=== PATIENT | female | born 1940 | race Caucasian/White ===

== ENCOUNTER 2016-07-10 06:33 | Observation (INO) | payer OTHER ==
[~2016-07-10] VITALS: Ht 185.4 cm; Wt 83.0 kg
--- NOTE | ~2016-07-10 | H ---
[facility] [address] [place] [address] HISTORY AND PHYSICAL Name: TAPIAJESSI VELASQUEZ CHAPIS Room #: 203-P [facility] Jonathan M.R.#: [id number] Admission: 07/10/16 Attend Phys: Solomon Riddle MD, Discharge: 07/11/16 Date of : 44 Report #: [id number] THIS REPORT FOR: //name// For History and Physical, please see office documentation/handwritten note in the patient's medical record. By: 1031 Solomon Riddle MD, FACC /
--- NOTE | ~2016-07-10 | CATHLAB ---
[facility] [place] [address] INVASIVE PROCEDURE REPORT Name: TAPIAJESSI CHAPIS Room #: 203-P [facility] IN M.R.#: [id number] Admission: 07/10/16 Attend Phys: Solomon Riddle, Discharge: 07/11/16 Date of : 44 Date of Service: 07/10/16 0847 Report #: [id number] THIS REPORT FOR: //name// CC: Solomon Haider PROCEDURES: Coronary angiography, PTCA to RCA. DESCRIPTION OF PROCEDURE: The patient was brought to the catheterization lab. documented cardiac catheterization performed at [facility] by Dr. Alston. There was evidence of significant area of in-stent restenosis. The right coronary had multiple areas of stenting with the mid vessel was 80-90% in-stent restenosis. I utilized an FL4 for the left coronary system, which revealed left main to be free of disease. The LAD moderately diseased and the circ OM was occluded and collaterally filled via left to left system. The JR4 guide, 0.014 Luge wire, heparin, Integrilin boluses and Integrilin drip. I utilized a 2.5 balloon initially to cross this high grade in-stent restenosis in a long area of mid vessel stent. I then exchanged this still under dilated for system, a 3.0 x 20 noncompliant balloon, which was an NC Euphora and dilated this entire midvessel up to 20 atmospheres. Final result was excellent with TITO grade 3 flow, no dissection or thrombus formation, essentially 0% residual. The patient had resolution of her EKG changes and chest pain also resolved. Vascular sheath is secured. Integrilin drip of one bottle maintained. We will remove the sheath by manual pressure. Stable upon transfer back to CV holding and then CCU for post-stent protocol. HEMODYNAMICS: 170/76, was given IV Lopressor and hydralazine for blood pressure control. IMPRESSION: 1. Successful percutaneous transluminal coronary angioplasty stent of mid vessel right coronary artery in-stent restenosis in an area of long segmented prior stent 90% to 0% with a 3.0 x 20 noncompliant balloon taken up to 3.25 mm, 0% residual and TITO grade 3 flow. There is a distal RCA lesion of 60%. The bifurcation will follow, another mild in-stent restenosis in this vessel was noted: 2. Left main, mild disease. 3. Left anterior descending stents around the apex with zupd-ys-gpaibdiu disease, no high-grade occlusion. 4. Circumflex obtuse marginal is occluded and collaterally filled via the left system. RECOMMENDATIONS: Continue aggressive risk factor modification, dual [facility] [address] [place] [address] INVASIVE PROCEDURE REPORT Name: RAMAKRISHNA TAPIARA NATION Room #: 203-P [facility] M.R.#: [id number] Admission: 07/10/16 Attend Phys: Solomon Riddle, Discharge: 07/11/16 Date of : 44 Date of Service: 07/10/16 0847 Report #: [id number] antiplatelet therapy to continue indefinitely. No lifting for 48 hours. No lying in tub, Jacuzzi or emanuel for a week. No MRI or dental work for 3 months. <ELECTRONICALLY SIGNED> By: Solomon Riddle MD, FACC 07/15/16 0903 0847 0941 Solomon Riddle MD, FACC /nt
--- NOTE | ~2016-07-10 | EKG ---
[address] [address] ELECTROCARDIOGRAM REPORT Name: JESSI TAPIA Room #: 203-P [facility] M.R.#: [id number] Admission: 07/10/16 Attend Phys: Solomon Riddle MD, Discharge: Date of : 44 Report #: [id number] THIS REPORT FOR: //name// [facility] Test Date: 2016-07-10 Test Time: 12:11:17 Pat Name: JESSI TAPIA Department: Room: [facility] Gender: F Farmworkers: Nakita WOLF : 1940 Requested By: Solomon Riddle Order Number: [id number] MD: Xu Alston Measurements Intervals [place] Rate: 90 P: 64 GA: 175 QRS: 23 QRSD: 106 T: 90 QT: 377 QTc: 462 Interpretive Statements Sinus rhythm Abnormal R-wave progression, early transition No previous ECG available for comparison Electronically Signed On 07-10-2016 19:08:12 CDT by Xu Alston [email or web address] <ELECTRONICALLY SIGNED> By: Xu Alston MD, [facility] 07/10/16 1908 1211 121 Xu Alston MD, FAC /EPI
[~2016-07-10 06:33] MED LIST: CLOPIDOGREL; COMBIVENT INH; CRESTOR5 MG PO; FISHOIL; IBUPROFEN 800800 MG PO; NORCO 5-325 TA1 EACH PO; PREDNISONE 20 M20 M1 PO; PRILOSEC40 MG; STOOL SOFTENER50 MG; ZPAK PO; [UNRECOGNIZED DRUG - OTHER]
[2016-07-10] MEDS ORDERED: PLAVIX 75 MG TA75 M1 PO (06:47)
[2016-07-10] MEDS ORDERED: STOOL SOFTENER100 MG PO (06:48)
[2016-07-10] MEDS ORDERED: AMITRIPTYLINE H25 M2 PO (06:49)
[2016-07-10] MEDS ORDERED: VITAMIN B-12500 MCG PO (06:49)
[2016-07-10] MEDS ORDERED: ASPIR 8181 MG PO (06:50)
[2016-07-10] MEDS ORDERED: TOPROL XL25 MG PO (06:50)
[2016-07-10] MEDS ORDERED: PREVACID30 MG PO (06:50)
[2016-07-10] MEDS ORDERED: COZAAR 25 MG TA25 MG PO (06:50)
[2016-07-10] MEDS ORDERED: LEVOTHYROXIN0.137 M1 PO (06:51)
[2016-07-10 09:38] LABS: HEMATOCRIT 36.7 % (37.0-47.0); HEMOGLOBIN 12.4 gm/dL (12.0-15.0); MCH 30.8 pg (26.0-34.0); MCHC 33.8 g/dL (28.0-37.0); MCV 91.2 fL (80.0-100.0); RBC 4.02 mil/uL (4.20-5.00); WBC 8.4 thou/uL (4.0-11.0)
[2016-07-10 09:43] LABS: ANION GAP 9 mmol/L (7-16); BUN 15 mg/dL (7-18); CALCIUM 8.7 mg/dL (8.5-10.1); CHLORIDE 105 mmol/L (98-107); CO2 24 mmol/L (21-32); GLUCOSE 95 mg/dL (70-99); POTASSIUM 4.1 mmol/L (3.5-5.1); SODIUM 138 mmol/L (136-145)
[2016-07-10 09:48] LABS: CHOLESTEROL 115 mg/dL (<200); HDL CHOLESTEROL 39 mg/dL (>40); LDL CHOLESTEROL 57 mg/dL (<100); TC:HDL 2.9 Ratio (Not establshd); TRIGLYCERIDE 96 mg/dL (<150); VLDL 19 mg/dL (<40)
[2016-07-11 03:52] LABS: HEMATOCRIT 37.7 % (37.0-47.0); HEMOGLOBIN 12.4 gm/dL (12.0-15.0); MCH 30.3 pg (26.0-34.0); MCHC 32.9 g/dL (28.0-37.0); MCV 91.9 fL (80.0-100.0); RBC 4.1 mil/uL (4.20-5.00); RDW 14.1 % (10.5-14.5); WBC 11.5 thou/uL (4.0-11.0)
[2016-07-11 04:07] LABS: CALCIUM 8.6 mg/dL (8.5-10.1); POTASSIUM 4.2 mmol/L (3.5-5.1)
== END 2016-07-11 10:32 | disposition home or self-care (01) ==
LOC: CATH 06:33 → 2N 11:50
PROVIDERS: Internal Medicine Cardiovascular Disease
DX: I25.10 Atherosclerotic heart disease of native coronary artery without angina pectoris (principal); E78.00 Pure hypercholesterolemia, unspecified; I10 Essential (primary) hypertension; F17.200 Nicotine dependence, unspecified, uncomplicated

== ENCOUNTER 2018-09-23 09:22 | Observation (INO) | payer OTHER ==
[~2018-09-23] VITALS: Ht 185.4 cm; Wt 83.9 kg
[2018-09-23] VITALS (10 sets, daily range): BP systolic 133–191; BP diastolic 61–78
[~2018-09-23 09:22] MED LIST changes: +AMITRIPTYLINE H25 M2 PO; +ASPIR 8181 MG PO; +COZAAR 25 MG TA25 MG PO; +LEVOTHYROXIN0.137 M1 PO; +PLAVIX 75 MG TA75 M1 PO; +PREVACID30 MG PO; +PROTONIX40 M1 PO; +STOOL SOFTENER100 MG PO; +SYNTHROID125 MC1 PO; +TOPROL XL25 MG PO; +VITAMIN B-1250 MC2 PO; +VITAMIN B-12500 MCG PO
--- NOTE | 2018-09-23 15:23 | NUR ---
1525---DEBBY IN PROGRESS. PT COOPERATIVE
--- NOTE | 2018-09-23 16:15 | EKG ---
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: NESTOR : 1940 Requested By: Solomon Riddle Order Number: [id number] MD: Giovani Correa Measurements Intervals [place] Rate: 84 P: 55 MA: 162 QRS: 9 QRSD: 127 T: 129 QT: 386 QTc: 457 Interpretive Statements Sinus rhythm Probable left atrial enlargement LVH with secondary repolarization abnormality Compared to ECG 07/10/2016 12:11:17 Left ventricular hypertrophy now present Early repolarization now present Electronically Signed On 09-23-2018 16:15:30 CDT by Giovani Correa [email or web address] ��������������������������������������������� <ELECTRONICALLY SIGNED> ���������������������������������������� By: Giovani Correa MD ��������������������������������������������� 09/23/18 1615 0949 0949 Giovani Correa MD /EPI
--- NOTE | 2018-09-23 16:25 | EKG ---
[place] [address] [place] [address] ELECTROCARDIOGRAM REPORT Name: JESSI TAPIA [facility] [id number] ������������������ Admission: 09/23/18 ������������������ Attend Phys: Solomon Riddle MD, Discharge: ������������������ Date of : 44 Report #: [id number] ����������������������������������������������������������������� [id number] THIS REPORT FOR: //name// [facility] Test Date: 2018-09-23 Test Time: 14:50:16 Pat Name: JESSI TAPIA Department: Room: Gender: F Director Of Volunteer Services: : 1940 Requested By: Xu Alston Order Number: [id number] MD: Giovani Correa Measurements Intervals [place] Rate: 94 P: 66 HI: 189 QRS: 15 QRSD: 121 T: 140 QT: 348 QTc: 436 Interpretive Statements Sinus rhythm Probable left atrial enlargement LVH with secondary repolarization abnormality Compared to ECG 07/10/2016 12:11:17 Left ventricular hypertrophy now present Early repolarization now present Electronically Signed On 09-23-2018 16:25:35 CDT by Giovani Correa [email or web address] ��������������������������������������������� <ELECTRONICALLY SIGNED> ���������������������������������������� By: Giovani Correa MD ��������������������������������������������� 09/23/18 1625 1450 1450 Giovani Correa MD /EPI
--- NOTE | 2018-09-23 18:20 | CATHLAB ---
[facility] [address] [place] [address] INVASIVE PROCEDURE REPORT Name: JESSI TAPIA Room #: 205-P [facility] IN .R.#: [id number] ������������� Admission: 09/23/18 ������������� Attend Phys: Solomon Riddle, Discharge: ��� ������������� ��� Date of : 44 Date of Service: 09/23/18 1820 �� Report #: [id number] �������� ��������������������������������������������[id number] THIS REPORT FOR: //name// APPROVED REPORT Study performed: 09/23/2018 12:12:19 Patient Details Patient Status: Out-Patient Room #: The patient is a 78 year-old female Event Personnel Xu Alston Fuel Efficient Aircraft Designer, Freddy Salcedo RN, Melisa Stevens RN RN, Dora Rucker SOLE LEVELER Scrub, Gabi Nicholas RTR, SOLE LEVELER Monitor Procedures Performed Left Heart Cath w/or w/o Coronaries 5001833 [facility] [address] Initial Mod Sed Same Phys/QHP Gr 251226 42600 Mod Sed Same Phys/QHP Ea 516665 SADI Place w/wo Plasty Single PDA 490614 Indication Positive stress test Procedure Narrative The right coronary system was accessed and visualized with a JR4 catheter. The left coronary system was accessed and visualized with a JL4 catheter. The left ventricle was accessed and visualized with a angled pigtail catheter. Left ventricular/Aortic Valve gradient assessed via catheter pullback. Left ventriculogram was performed in 30 degree projection. The patient tolerated the procedure well and there were no complications associated with the procedure. Intraoperative Conscious Sedation Sedation start time: 12:29 Case end Time: 14:07 Fentanyl 100 mcg Versed 2 mg Fluoro Time: 21.08 minutes Dose: DAP 38924.40 cGycm2 3811 mGy Contrast Type and Amount: Visipaque 310 ml Coronary Angiography The patient's coronary anatomy is right dominant. [facility] [address] [place] [address] INVASIVE PROCEDURE REPORT Name: JESSI TAPIA Room #: 205-P [facility] IN M.R.#: [id number] ������������� Admission: 09/23/18 ������������� Attend Phys: Solomon Riddle, Discharge: ��� ������������� ��� Date of : 44 Date of Service: 09/23/18 1820 �� Report #: [id number] �������� ��������������������������������������������[id number] Diagnostic Cath Left Main Normal left main LAD Proximal and mid LAD stents widely patent with minimal plaquing Diagonal 1 Moderate size first diagonal branch, angiographically normal Diagonal 2 Second diagonal branch, angiographically normal Circumflex Moderate 40-50% proximal circumflex stenosis OM1 Occluded mid first marginal branch with left to left collateralization OM2 Small distally arising second marginal branch, angiographically normal Right Coronary Dominant right coronary stented throughout its course, proximal to distally 95% mid intrastent stenosis. The distalSubtotalled distal RCA intrastent stenosis R PDA Severe ostial posterior descending branch stenosis RPLV Severe posterior lateral branch stenosis Left Ventriculography The left ventricle is normal in size with normal contractility. The left ventricular ejection fraction is estimated to be 60-65%. Left ventricular wall motion abnormalities are not present. There is 1+ mitral insufficiency. Hemodynamics The aortic pressure is 163/63 mmHg with a mean of 105 mmHg. The left ventricular pressure is 154/7 mmHg with a mean of mmHg. The left ventricular end diastolic pressure is 24 mmHg. PCI Technique Lesion Anticoagulation was achieved with Heparin, Integrilin. Patient was preloaded with Plavix. Percutaneous coronary intervention was performed on the mid and distal right coronary artery. The lesion stenosis prior to intervention was 99% with TITO 3 flow. A LAUNCHER 6FR JR 4 #[id number] Guide Catheter was used to engage the ostium. A Luge Wire .014 x 182CM #[id number] Interventional Guidewire was used to cross the lesion. BALLOON DILATION The mid and distal RCA severe intrastent stenoses were dilated with a high pressure non-compliant balloon. POST STENT DEPLOYMENT BALLOON DILATION [facility] [address] [place] [address] INVASIVE PROCEDURE REPORT Name: JESSI TAPIA Room #: 205-P [facility] IN M.R.#: [id number] ������������� Admission: 09/23/18 ������������� Attend Phys: Solomon Riddle, Discharge: ��� ������������� ��� Date of : 44 Date of Service: 09/23/18 1820 �� Report #: [id number] �������� ��������������������������������������������[id number] A Balloon catheter TREK NC RX 3.0 X 15 #[id number] was inserted and inflated up to 14.00atm for 30seconds. PCI Technique Lesion 2 Percutaneous Coronary Intervention was performed on the mid right coronary artery. The lesion stenosis prior to intervention was 99% with TITO 3 flow. A LAUNCHER 6FR JR 4 #356635 Guide Catheter was used to engage the right ostium. A Luge Wire .014 x 182CM #781008 Interventional Guidewire was used to cross the lesion. Stent Deployment A drug-eluting stent RESOLUTE DAMIR RX 3.5 X 30 #[id number] was inserted and inflated up to 16.00atm for 31seconds. 3.5mm x 15mm NC Trek was used to post dilate the 3.5mm x 30mm Resolute [place] RX SADI. Three inflations were performed: 1.)22 zoë for 31 seconds. 2.)22 zoë for 44 seconds. 3.)22 zoë for 27 seconds. Post Stent Deployment Balloon Dilation A Balloon catheter TREK NC RX 3.0 X 15 #[id number] was inserted and inflated up to 22.00atm for 30seconds. Additional Inflation: 18.00atm for 28seconds. Additional Inflation: 22.00atm for 37seconds. 0% residual stenosis remained following repeat stenting and post-dilatation with a non-compliant balloon. Final angiography reveals 0 % stenosis with TITO 3 flow. PCI Technique Lesion 3 Percutaneous Coronary Intervention was performed on the first right posterior lateral segment. A LAUNCHER 6FR JR 4 #442540 Guide Catheter was used to engage the ostium. A Luge Wire .014 x 182CM #[id number] Interventional Guidewire was used to cross the lesion. Balloon Dilation A Balloon catheter Euphora RX 2.5 x 12 #[id number] was inserted and inflated up to 8.00atm for 10seconds. Additional Inflation: 16.00atm for 30seconds. Post Stent Deployment Balloon Dilation A Balloon catheter TREK NC RX 2.5 X 12 #[id number] was inserted and inflated up to 16.00atm for 13seconds. Additional Inflation: 12.00atm for 13seconds. Additional Inflation: 14.00atm for 64seconds. Final angiography reveals 0 % stenosis with TITO [address] [place] [address] INVASIVE PROCEDURE REPORT Name: JESSI TAPIA Room #: 205-P [facility] IN M.R.#: [id number] ������������� Admission: 09/23/18 ������������� Attend Phys: Solomon Riddle, Discharge: ��� ������������� ��� Date of : 44 Date of Service: 09/23/18 1820 �� Report #: [id number] �������� ��������������������������������������������[id number] Initially the PL branch stenosis was pre-dilated with a 2.5mm balloon. Following this the PDA stenosis was stented and post-dilated with a non-compliant balloon. The PL branch was re-wired and the ostial stenosis/intermediate balloon with the 2.5mm balloon. Overall excellent angiographic result TITO III flow at PDA stent and PL branch origin. PCI Technique Lesion 4 Percutaneous Coronary Intervention was performed on the right posterior descending artery. The lesion stenosis prior to intervention was 99% with TITO 3 flow. A LAUNCHER 6FR JR 4 #943218 Guide Catheter was used to engage the right ostium. A Luge Wire .014 x 182CM #[id number] Interventional Guidewire was used to cross the lesion. Balloon Dilation A Balloon catheter Euphora RX 2.5 x 12 #[id number] was inserted and inflated up to 12.00atm for 27seconds. Stent Deployment A drug-eluting stent RESOLUTE DAMIR RX 2.5 X 12 #[id number] was inserted and inflated up to 14.00atm for 27seconds. Post Stent Deployment Balloon Dilation A Balloon catheter Wavebreak Mediaphora NC RX 2.5 x 12 #[id number] was inserted and inflated up to 14.00atm for 19seconds. Additional Inflation: 22.00atm for 22seconds. Final angiography reveals 0 % stenosis with TITO 3 flow. Conclusion 1. Normal global and regional systolic function. EF 65% 2. Mild intrastent LAD plaquing 3. Non-dominant circumflex. Occlueded OM1 with left to left collateralization 4. Severe mid intrastent RCA disease re-stented with a 3.5 x 30mm Resolute stent 5. Complex distal RCA intrastent stenosis, extending to origins of PDA and PL branches, neither of which had been previously stented (PDA now stented with 2.5 x 12mm Resolute; PL branch ballooned with non-compliant balloon) Recommendations Smoking Cessation [place] [address] [place] [address] INVASIVE PROCEDURE REPORT Name: JESSI TAPIA CHAPIS Room #: 205-P [facility] IN ..#: [id number] ������������� Admission: 09/23/18 ������������� Attend Phys: Solomon Riddle, Discharge: ��� ������������� ��� Date of : 44 Date of Service: 09/23/181819 �� Report #: [id number] �������� ��������������������������������������������[id number] Cardiac Rehabilitation Referral Aggressive Medical Therapy ��������������������������������������������� <ELECTRONICALLY SIGNED> ���������������������������������������� By: Xu Alston MD, [facility] ��������������������������������������������� 09/23/181819 19 19 Xu Alston MD, FACC /INF
--- NOTE | 2018-09-23 18:23 | NUR ---
PATIENT ARRIVED FROM CV HOLDING VIA STRECHER, ALERT AND ORIENTED X4. LT GRION SITE SOFT AND INTACT, DRESSING D/C/I. ADMISION COMPLETED AND POC INTIATED. AND WILL CONTINUE TO MONITOR.
[2018-09-24] VITALS: BP 153/69
--- NOTE | 2018-09-24 04:13 | NUR ---
PT POST CARDIAC CATH AND STENT TO THE RIGHT LEG. AO X 4. REPORTS SORENESS IN THE CHEST POST CATH. NO NAUSEA, VOMITING.OR DIZZINESS. PAIN DOES NOT RADIATE AND IS ALLEVIATED BY PAIN MEDICATION.PAIN IS INTENSE WHEN DEEP BREATHING. PT WAS OFF BEDREST AND ABLE TO VOID WITHOUT ANY PROBLE. STAND BY ASSIST WITH AMBULATION. NO OTHER C/O NOTED AT THIS TIME. WILL CONTINUE WITH PLAN OF CARE
[2018-09-24 04:44] LABS: HEMATOCRIT 37.6 % (37.0-47.0); HEMOGLOBIN 12.7 gm/dL (12.0-15.0); MCH 30.5 pg (26.0-34.0); MCHC 33.8 g/dL (28.0-37.0); MCV 90.3 fL (80.0-100.0); RBC 4.16 mil/uL (4.20-5.00); RDW 15.2 % (10.5-14.5); WBC 7.7 thou/uL (4.0-11.0)
[2018-09-24 04:45] VITALS: BP 149/59
[2018-09-24 04:53] LABS: ALBUMIN 3.1 g/dL (3.4-5.0); ANION GAP 10 mmol/L (7-16); BUN 14 mg/dL (7-18); CALCIUM 8.4 mg/dL (8.5-10.1); CHLORIDE 107 mmol/L (98-107); CHOLESTEROL 110 mg/dL (<200); CO2 23 mmol/L (21-32); GLUCOSE 103 mg/dL (74-106); HDL CHOLESTEROL 31 mg/dL (>40); LDL CHOLESTEROL 59 mg/dL (<100); POTASSIUM 3.7 mmol/L (3.5-5.1); SGOT 17 U/L (15-37); SGPT 13 U/L (30-65); SODIUM 140 mmol/L (136-145); TC:HDL 3.5 Ratio (Not establshd); TOTAL BILIRUBIN 0.4 mg/dL (<0.1-1.0); TRIGLYCERIDE 103 mg/dL (<150); VLDL 21 mg/dL (<40)
[2018-09-24 04:56] LABS: SERUM ASSESSMENT Clear
[2018-09-24 04:57] LABS: TROPONIN-I 2.14 ng/mL (<0.06)
[2018-09-24] MEDS ORDERED: ASPIR 8181 MG PO (07:51)
--- NOTE | 2018-09-24 07:56 | EKG ---
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 : 1940 Requested By: Xu Alston Order Number: [id number] MD: Xu Alston Measurements Intervals [place] Rate: 89 P: 35 [place]: 165 QRS: 5 QRSD: 122 T: 139 QT: 383 QTc: 467 Interpretive Statements Sinus rhythm Nonspecific ST and T wave abnormality Compared to ECG 09/23/2018 14:50:16 No significant change was found Electronically Signed On 09-24-2018 7:55:59 CDT by Xu Alston [email or web address] ��������������������������������������������� <ELECTRONICALLY SIGNED> ���������������������������������������� By: Xu Alston MD, [facility] ��������������������������������������������� 09/24/18 0755 0750 0750 Xu Alston MD, [facility] /EPI
[2018-09-24 08:07] VITALS: BP 155/58
[2018-09-24 08:50] VITALS: BP 155/58
[2018-09-24 09:04] VITALS: BP 155/58
--- NOTE | 2018-09-24 10:31 | NUR ---
PATIENT CARE ASSUMED, ASSESSMENT CHARTED, VSS, LEFT GROIN DRESSING, CDI, NO COMPLAINTS OF PAIN, DISCHARGE INSTRUCTIONS GIVEN, PATIENT STATED UNDERSTANDING.
== END 2018-09-24 09:45 | disposition home or self-care (01) ==
LOC: CATH 09:22 → 2N 16:57 → ENTRNSPT 09-24 09:39 → EDTRNSPTSTS 09-24 09:41 → 2N 09-24 09:45
PROVIDERS: ADMIT Internal Medicine
DX: I25.10 Atherosclerotic heart disease of native coronary artery without angina pectoris (principal); I73.9 Peripheral vascular disease, unspecified; I10 Essential (primary) hypertension; E78.5 Hyperlipidemia, unspecified; F17.200 Nicotine dependence, unspecified, uncomplicated; Z88.8 Allergy status to other drugs, medicaments and biological substances

== ENCOUNTER → 2020-08-17 | Outpatient (CLI) | payer OTHER | LOC: SJCVC 13:12 | PROVIDERS: ATTEND Internal Medicine Cardiovascular Disease | DX: R94.31 Abnormal electrocardiogram [ECG] [EKG] (principal); I25.10 Atherosclerotic heart disease of native coronary artery without angina pectoris; I10 Essential (primary) hypertension; E78.00 Pure hypercholesterolemia, unspecified; I65.23 Occlusion and stenosis of bilateral carotid arteries; I73.9 Peripheral vascular disease, unspecified; R07.89 Other chest pain; R06.02 Shortness of breath; F17.200 Nicotine dependence, unspecified, uncomplicated; Z79.82 Long term (current) use of aspirin; Z79.899 Other long term (current) drug therapy; Z82.49 Family history of ischemic heart disease and other diseases of the circulatory system ==

== ENCOUNTER → 2020-09-08 | Outpatient (CLI) | payer OTHER ==
[~2020-09-08] MED LIST changes: +ASA81BEC PO; +CALCIUM CITRAT1 EA18 PO; +FAMOTIDINE 40 M40 M1 PO
== END ==
LOC: SJCVCIMAG 07:37
PROVIDERS: ATTEND Internal Medicine Cardiovascular Disease
DX: I70.203 Unspecified atherosclerosis of native arteries of extremities, bilateral legs (principal); R00.0 Tachycardia, unspecified; I49.3 Ventricular premature depolarization; R06.00 Dyspnea, unspecified; R94.31 Abnormal electrocardiogram [ECG] [EKG]; I10 Essential (primary) hypertension; I25.10 Atherosclerotic heart disease of native coronary artery without angina pectoris; E78.00 Pure hypercholesterolemia, unspecified; I65.23 Occlusion and stenosis of bilateral carotid arteries; J44.9 Chronic obstructive pulmonary disease, unspecified; F17.200 Nicotine dependence, unspecified, uncomplicated; Z95.820 Peripheral vascular angioplasty status with implants and grafts; Z95.5 Presence of coronary angioplasty implant and graft; Z79.82 Long term (current) use of aspirin; Z79.899 Other long term (current) drug therapy; Z82.49 Family history of ischemic heart disease and other diseases of the circulatory system

== ENCOUNTER 2020-09-13 09:48 | Observation (INO) | payer OTHER ==
[~2020-09-13] VITALS: Ht 185.4 cm; Wt 80.3 kg
[~2020-09-13 09:48] MED LIST changes: -ASA81BEC PO; -CALCIUM CITRAT1 EA18 PO; -FAMOTIDINE 40 M40 M1 PO
[2020-09-13 10:38] VITALS: BP 166/70
[2020-09-13 10:40] LABS: HEMATOCRIT 42.6 % (37.0-47.0); HEMOGLOBIN 14.3 gm/dL (12.0-15.0); MCH 30.9 pg (26.0-34.0); MCHC 33.6 g/dL (28.0-37.0); MCV 92.1 fL (80.0-100.0); RBC 4.62 mil/uL (4.20-5.00); RDW 14.9 % (10.5-14.5); WBC 7.7 thou/uL (4.0-11.0)
[2020-09-13] MEDS ORDERED: CALCIUM CITRAT1 EA18 PO (10:48)
[2020-09-13] MEDS ORDERED: FAMOTIDINE 40 M40 M1 PO (10:48)
[2020-09-13] MEDS ORDERED: ASA81BEC PO (10:49)
[2020-09-13 10:55] LABS: CALCIUM 9.3 mg/dL (8.5-10.1); CREATININE 1.2 mg/dL (0.6-1.0)
[2020-09-13 21:40] VITALS: BP 148/66
[2020-09-13 21:45] VITALS: BP 151/70
[2020-09-13 22:00] VITALS: BP 147/72
[2020-09-13 22:15] VITALS: BP 126/88
[2020-09-13 22:30] VITALS: BP 145/70
[2020-09-14] VITALS: BP 160/72
[2020-09-14 01:00] VITALS: BP 125/50
[2020-09-14 02:00] VITALS: BP 136/60
[2020-09-14 03:37] VITALS: BP 152/68
[2020-09-14 05:07] LABS: HEMATOCRIT 37.7 % (37.0-47.0); HEMOGLOBIN 12.7 gm/dL (12.0-15.0); MCH 31.3 pg (26.0-34.0); MCHC 33.5 g/dL (28.0-37.0); MCV 93.3 fL (80.0-100.0); RBC 4.05 mil/uL (4.20-5.00); RDW 14.9 % (10.5-14.5); WBC 7.6 thou/uL (4.0-11.0)
[2020-09-14 05:36] LABS: CALCIUM 8.4 mg/dL (8.5-10.1); CREATININE 1.1 mg/dL (0.6-1.0); POTASSIUM 4.1 mmol/L (3.5-5.1); TROPONIN-I 0.42 ng/mL (<0.06)
--- NOTE | 2020-09-14 05:48 | NUR ---
ASSUME CARE 1900. PT/VITASL STABLE. INDICATES CHEST SORENESS NUT DENIES ANY CHEST PRESSURE OR PAIN. R/L GROIN SITE CDI. GOOD ENDURANCE TO ACTIVITY. SCANT DRAINAGE NOTED ON RIGHT GROIN DRESSING AFTER WALKING. NO FURTHER DAINAGE NOTED WITH SUBSEQUENT CHECKS. 2+ PEDAL PULSES NOTED. BLE PINK AND WARM TO TOUCH. 2 STENTS PLACED IN RIGHT LEG AND BALOON PLACED OVER LESION IN RCA WITH CARIAC CATHERIZATION. PLAN IS FOR POSSIBLE DISCHARGE TODAY WITH PLANS OF RETURNING NEXT WEEK FOR LEFT LEG STENT PLACEMENT. WILL CONTINUE TO MONITOR AND FOLLOW WITH POC
--- NOTE | 2020-09-14 08:12 | EKG ---
[address] [address] ELECTROCARDIOGRAM REPORT Name: JESSI TAPIA Room #: 206-[facility]..#: [id number] Admission: 09/13/20 Attend Phys: Edgar Cobb MD Discharge: Date of : 44 Report #: [id number] [facility] Test Date: 2020-09-13 Test Time: 18:42:54 Pat Name: JESSI TAPIA Department: Room: 206 P Gender: F Supervisory Civil Engineer: FSCHWALDINAH : 1940 Requested By: Edgar Cobb Order Number: [id number] MD: Giovani Correa Measurements Intervals [place] Rate: 99 P: 69 ND: 150 QRS: 49 QRSD: 113 T: 234 QT: 371 QTc: 477 Interpretive Statements Sinus rhythm Borderline intraventricular conduction delay Baseline wander in lead(s) V6 Compared to ECG 09/24/2018 07:50:05 Electronically Signed On 09-14-2020 8:12:24 CDT by Giovani Correa [email or web address] <ELECTRONICALLY SIGNED> By: Giovani Correa MD 09/14/2012 41 41 Giovani Correa MD /LORENZO
--- NOTE | 2020-09-14 08:13 | EKG ---
[address] [address] ELECTROCARDIOGRAM REPORT Name: JESSI TAPIA Room #: 206-[facility] M.R.#: [id number] Admission: 09/13/20 Attend Phys: Edgar Cobb MD Discharge: Date of : 44 Report #: [id number] [facility] Test Date: 2020-09-13 Test Time: 22:53:53 Pat Name: JESSI TAPIA Department: Room: 206 P Gender: F Chick Room Supervisor: KENDRICK : 1940 Requested By: Solomon Riddle Order Number: [id number] MD: Giovani Correa Measurements Intervals [place] Rate: 95 P: 58 MO: 157 QRS: 24 QRSD: 119 T: 73 QT: 387 QTc: 487 Interpretive Statements Sinus rhythm Nonspecific intraventricular conduction delay Borderline ST depression, anterolateral leads Compared to ECG 09/13/2020 18:42:54 Electronically Signed On 09-14-2020 8:13:43 CDT by Giovani Correa [email or web address] <ELECTRONICALLY SIGNED> By: Giovani Correa MD 09/14/20 0813 52 52 Giovani Correa MD /LOR[facility]
[2020-09-14 08:18] VITALS: BP 148/69
[2020-09-14 10:34] VITALS: BP 148/69
--- NOTE | 2020-09-15 18:10 | CATHLAB ---
[facility] [place] [address] INVASIVE PROCEDURE REPORT Name: JESSI TAPIA Room #: 206-P [facility] Jonathan M.RMatilde#: [id number] Admission: 09/13/20 Attend Phys: Edgar Cobb MD Discharge: 09/14/20 Date of : 44 Report #: [id number] THIS REPORT FOR: cc: Laya Haider MD, Kelly A. MD Mancuso, Gerald M. MD [facility] ~ APPROVED REPORT Study performed: 09/13/2020 19:07:10 Patient Details The patient is a 80 year-old female Event Personnel Solomon Riddle Insurance Claims Processor, Eugenia Cr, Raz Santo RT.RMatilde Procedures Performed Art Access - R femoral artery* Left Heart Cath w/or w/o Coronaries 7875207 [facility] PTCA Single Vessel RCA 6029075 PCISINGLE 43973 Initial Mod Sed Same Phys/QHP Gr5y 252459 96874 Mod Sed Same Phys/QHP Ea 303225 Hemostasis w/ Mynx Indication Chest pain Procedure Narrative The Right Groin^ was infiltrated with 2% Lidocaine subcutaneous anesthesia. A PINNACLE 6FR Sheath #[id number] sheath was inserted into the . Coronary angiography was performed using coronary diagnostic catheters. The right coronary system was accessed and visualized with a JR4 catheter. The left coronary system was accessed and visualized with a JL4 catheter. The left ventricle was accessed and visualized with a STR PIG catheter. Left ventriculogram was performed in 30 degree projection. There was no hematoma. Intraoperative Conscious Sedation Sedation start time: 1949 Case end Time: 2104 Fentanyl 100 mcg Versed 2 mg Fluoro Time: 11.00 minutes Dose: DAP 8544.20 cGycm2 1000 mGy Contrast Type and Amount: Visipaque 165 ml [facility] [place] [address] INVASIVE PROCEDURE REPORT Name: TAPIAJESSIRA NATION Room #: 206-P [facility] IN M.R.#: [id number] Admission: 09/13/20 Attend Phys: Edgar Cobb, Discharge: 09/14/20 Date of : 42 Report #: [id number] Hemodynamics The aortic pressure is 152/62 mmHg with a mean of 93 mmHg. The left ventricular pressure is 142/3 mmHg with a mean of mmHg. The left ventricular end diastolic pressure is 8 mmHg. PCI Technique Lesion Percutaneous coronary intervention was performed on the Superficial Femoral. A LAUNCHER 6FR JR 4 #[id number] Guide Catheter was used to engage the RCA ostium. A Luge Wire .014 x 182CM #[id number] Interventional Guidewire was used to cross the lesion. BALLOON DILATION A Balloon catheter Sprinter OTW 2.5 x 15 #[id number] was inserted and inflated up to 18atm for 27seconds. Additional Inflation: 20atm for 21seconds. STENT DEPLOYMENT NO STENT PLACED PCI ONLY. POST STENT DEPLOYMENT BALLOON DILATION A Balloon catheter TREK NC OTW 4.0 X 15 #[id number] was inserted and inflated up to 8atm for 9seconds. Additional Inflation: 4atm for 13seconds. Additional Inflation: 4atm for 17seconds. ADDITIONAL INFLATIONS: 12 SHERRI FOR 33 SEC., 10 SHERRI FOR 28 SECS. 3RD BALLOON USED NC EUPHORA 4.0X20MM 22 SHERRI FOR 48 SEC, 12 SHERRI FOR 11 SEC. AN 10 SHERRI FOR 15 SEC. PCI Technique Lesion 2 Percutaneous Coronary Intervention was performed on the proximal right coronary artery. Conclusion #1. Successful PTCA of a focal in-stent restenosis in the proximal RCA which is full metal jacket. With a 4.0 noncompliant balloon to 20 sherri 0% residual TITO grade III flow. #2 successful PTCA of a focal distal in-stent restenosis with a 2.5 balloon to 18 sherri with minimal residual filling a diffusely diseased PDA SALAZAR. The entire vessel and PDA previously stented. #3 the left main is mildly diseased and calcified giving rise to LAD and circumflex. #4 the LAD is proximal stent with a 30% in-stent restenosis mild diffuse disease in his extends around the apex is a type III LAD. No high-grade focal stenosis otherwise noted. #5 circumflex OM small nondominant the first OM is occluded and collateralized from the left system. Proximal circumflex 70% filling [facility] [address] [place] [address] INVASIVE PROCEDURE REPORT Name: JESSI TAPIA Room #: 206-P DIS IN M.R.#: [id number] Admission: 09/13/20 Attend Phys: Edgar Cobb, Discharge: 09/14/20 Date of : 42 Report #: [id number] a smaller circumflex in the AV groove #6 normal left ventricular size and systolic function EF 65% Recommendations and plan: Continue aggressive risk factor modification. Continue dual antiplatelet therapy. Patient to CCU to follow PCI protocol <ELECTRONICALLY SIGNED> By: Solomon Riddle MD, FACC 09/15/201808 08 08 Solomon Riddle MD, FACC /INF
== END 2020-09-14 11:26 | disposition home or self-care (01) ==
LOC: CATH 09:48 → 2N 21:36
PROVIDERS: Internal Medicine Cardiovascular Disease; ADMIT Nuclear Medicine Nuclear Cardiology; ATTEND Nuclear Medicine Nuclear Cardiology
DX: I25.10 Atherosclerotic heart disease of native coronary artery without angina pectoris (principal); I70.201 Unspecified atherosclerosis of native arteries of extremities, right leg; I10 Essential (primary) hypertension; E78.5 Hyperlipidemia, unspecified; F17.200 Nicotine dependence, unspecified, uncomplicated; Z79.82 Long term (current) use of aspirin; Z79.899 Other long term (current) drug therapy

== ENCOUNTER → 2020-10-18 | Outpatient (CLI) | payer OTHER ==
[~2020-10-18] VITALS: Ht 185.4 cm; Wt 79.5 kg
[~2020-10-18] MED LIST changes: +ASA81BEC PO; +CALCIUM CITRAT1 EA18 PO; +FAMOTIDINE 40 M40 M1 PO
[2020-10-18 07:08] VITALS: BP 153/61
[2020-10-18 07:37] LABS: HEMATOCRIT 39.8 % (37.0-47.0); HEMOGLOBIN 13.2 gm/dL (12.0-15.0); MCH 30.7 pg (26.0-34.0); MCHC 33.2 g/dL (28.0-37.0); MCV 92.5 fL (80.0-100.0); RBC 4.31 mil/uL (4.20-5.00); RDW 15.4 % (10.5-14.5); WBC 6.8 thou/uL (4.0-11.0)
[2020-10-18 07:42] LABS: CREATININE 1.3 mg/dL (0.6-1.0); POTASSIUM 3.8 mmol/L (3.5-5.1)
[2020-10-18 10:09] VITALS: BP 146/52
[2020-10-18 10:40] VITALS: BP 141/58
[2020-10-18 10:55] VITALS: BP 141/58
[2020-10-18 11:25] VITALS: BP 146/56
[2020-10-18 11:55] VITALS: BP 146/56
== END | disposition home or self-care (01) ==
LOC: CATH 06:33
PROVIDERS: ATTEND Nuclear Medicine Nuclear Cardiology
DX: I70.212 Atherosclerosis of native arteries of extremities with intermittent claudication, left leg (principal); M79.605 Pain in left leg; I25.10 Atherosclerotic heart disease of native coronary artery without angina pectoris; I10 Essential (primary) hypertension; E78.00 Pure hypercholesterolemia, unspecified; E78.5 Hyperlipidemia, unspecified; J44.9 Chronic obstructive pulmonary disease, unspecified; E03.9 Hypothyroidism, unspecified; Z98.890 Other specified postprocedural states; Z79.899 Other long term (current) drug therapy; Z98.41 Cataract extraction status, right eye; Z98.42 Cataract extraction status, left eye; Z88.8 Allergy status to other drugs, medicaments and biological substances

== ENCOUNTER 2020-11-16 01:39 | Inpatient (IN) | payer OTHER ==
[~2020-11-16] VITALS: Ht 185.4 cm; Wt 81.6 kg
[2020-11-16 01:40] VITALS: BP 207/84
[2020-11-16 02:30] LABS: ABSOLUTE NEUTROPHILS 6.3 thou/uL (1.4-8.2); BASOPHILS 0.2 % (0.0-2.0); EOSINOPHILS 0.9 % (0.0-3.0); HEMATOCRIT 37.7 % (37.0-47.0); HEMOGLOBIN 12.5 gm/dL (12.0-15.0); LYMPHOCYTES 17.4 % (24.0-44.0); MCH 30.4 pg (26.0-34.0); MCHC 33.2 g/dL (28.0-37.0); MCV 91.5 fL (80.0-100.0); MONOCYTES 5.7 % (1.0-8.0); PLATELET COUNT 173 thou/uL (150-400); POLYS 75.8 % (36.0-66.0); RBC 4.12 mil/uL (4.20-5.00); RDW 15.3 % (10.5-14.5); WBC 8.3 thou/uL (4.0-11.0)
[2020-11-16 02:35] LABS: ANION GAP 8 mmol/L (7-16); BUN 24 mg/dL (7-18); CALCIUM 8.7 mg/dL (8.5-10.1); CHLORIDE 107 mmol/L (98-107); CO2 27 mmol/L (21-32); CREATININE 1.4 mg/dL (0.6-1.0); GLUCOSE 100 mg/dL (74-106); POTASSIUM 4.1 mmol/L (3.5-5.1); SODIUM 142 mmol/L (136-145)
[2020-11-16 02:46] LABS: ALBUMIN 3.4 g/dL (3.4-5.0); SGOT 13 U/L (15-37); SGPT 13 U/L (14-59); TOTAL BILIRUBIN 0.3 mg/dL (0.2-1.0); TOTAL PROTEIN 6.8 g/dL (6.4-8.2); TROPONIN-I <0.06 ng/mL (<0.06)
--- NOTE | 2020-11-16 09:43 | EKG ---
[place] [address] [facility] [place] [address] ELECTROCARDIOGRAM REPORT Name: JESSI TAPIA Room #: 170-9 ADM IN M.R.#: [id number] Admission: 11/16/20 Attend Phys: Venice Paredes MD Discharge: Date of : 42 Report #: [id number] [facility] ED Test Date: 2020-11-16 Test Time: 03:37:41 Pat Name: JESSI TAPIA Department: Room: 170 Gender: F Mobile Home Laborer: : 1940 Requested By: James Arreola Order Number: [id number] MD: Xu Alston Measurements Intervals [place] Rate: 79 P: 59 OR: 177 QRS: 35 QRSD: 119 T: 90 QT: 392 QTc: 450 Interpretive Statements Sinus rhythm Nonspecific intraventricular conduction delay Nonspecific ST and T wave abnormality Compared to ECG 09/13/2020 22:53:53 No significant change was found Electronically Signed On 11-16-2020 9:43:45 CDT by Xu Alston [email or web address] <ELECTRONICALLY SIGNED> By: Xu Alston MD, [facility] 11/16/20 0943 6 6 Xu Alston MD, FAC /EPI
--- NOTE | 2020-11-16 17:33 | NUR ---
80-year-old female with past medical history known for hypertension, hyperlipidemia, history of CAD status post cardiac stents, PAD status post stenting, history of hypothyroidism, tobacco use. Patient presented to [facility] status post fall at home. Currently patient alert, oriented, reports dizziness. Patient reports she was walking in the living room when she believes she tripped on the ottoman and fell. Patient reports left hip pain after the fall. Patient was admitted status post fall and after head CT could not exclude very faint hemorrhage and MRI was orderd. Pelvis images showed no evidence of fracture. Notably patient was discharged on 09-13-20 follow a an angioplasty of the proximal and distal RCA and was discharged home on Plavix and ASA with outpatient follow up. ED Triage assessment notes Pfizer x2 vaccinations in July or 2020. ED General Assessment notes the patient to be A&O times 4. Medical Record notes next of kin as son Bonifacio [place] at [phone] at same address as the patient. Once medical team has assessed treatment plan CM will assist with discharge needs as needed.
[2020-11-16 20:32] VITALS: BP 172/71
[2020-11-16 22:00] VITALS: BP 186/81
--- NOTE | 2020-11-17 03:24 | NUR ---
PT ADMITTED TO THE UNIT WITH C/O FALL AND PAIN ON LT HIP POST FALL.PT IS A/O X4.PT C/O PAIN ON MOVEMENT,PT UNABLE TO GET UP TO USE BATHROOM OR BEDSIDE COMMODE.IV ACCESS ON LT AC SL.PT IS ON 2L OF O2 VIA NC.SKIN INTACT WITH NO ISSUES NOTED.FALL PRECAUTIONS IN PLACE.PT TAKE MEDS WHOLE WITH NO ISSUES.WILL CONTINUE TO MONITOR
[2020-11-17 05:03] LABS: ABSOLUTE NEUTROPHILS 4.9 thou/uL (1.4-8.2); BASOPHILS 0.4 % (0.0-2.0); EOSINOPHILS 1.1 % (0.0-3.0); HEMATOCRIT 37.9 % (37.0-47.0); HEMOGLOBIN 12.6 gm/dL (12.0-15.0); LYMPHOCYTES 18.3 % (24.0-44.0); MCH 30.3 pg (26.0-34.0); MCHC 33.3 g/dL (28.0-37.0); MCV 90.9 fL (80.0-100.0); MONOCYTES 7.7 % (1.0-8.0); PLATELET COUNT 143 thou/uL (150-400); POLYS 72.5 % (36.0-66.0); RBC 4.16 mil/uL (4.20-5.00); WBC 6.8 thou/uL (4.0-11.0)
[2020-11-17 05:18] LABS: CALCIUM 8.4 mg/dL (8.5-10.1); CREATININE 1.1 mg/dL (0.6-1.0); MAGNESIUM 2.2 mg/dL (1.8-2.4)
[2020-11-17 07:41] VITALS: BP 171/85
--- NOTE | 2020-11-17 15:41 | NUR ---
Patient has 3/10 pain to bilateral hips. She doesnt want pain medication at this time. Her son Gurinder [place] came to visit her today. He wants to be called with any updates. Nicotine patch placed on patients left shoulder and son wanted nurse to remove it that she only smokes 1 a day. Nurse asked patient and she said yes remove it. Its removed.
[2020-11-17 15:50] VITALS: BP 156/79; BP 161/72
--- NOTE | 2020-11-17 16:19 | NUR ---
PT ADMITTED RELATED TO FALL AND SYNCOPE. CM REVIEWED CHART AND SPOKE WITH CARE TEAM. CM MET WITH PT AT BEDSIDE THIS DAY. PT APPEARED TO BE A&O X4. CM ROLE INTRODUCED. PT INDICATED SHE LIVES IN A HOUSE WITH HER TWO SONS. PT INDICATED THERE ARE 10 STEPS TO ENTER AND NONE INSIDE SHE USES. 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 PT INDICATED NO HH HX AND NO SNF HX. PT INDICATED SHE HAS 2 WALKERS, A WC, AND SOME CANES AT HOME SHOULD SHE NEED THEM. CM CALLED AND SPOKE WITH PT'S SON GALEN AND HE CONFIRMED THAT ABOVE. HE INDIATED THAT PT HAD BEEN DOING PRETTY WELL UNTIL FALL AND THAT THEY HAD USED FWW AND WC AFTER FALL. HE INDICATED THERE IS A RAMP TO ENTER THE HOME IN BACK. HE INDICATED THEY WOULD PREFER PT TO RETUN HOME WITH HH SERVICES UPON [place] RATHER THAN SNF. CM FAXED REFERRAL TO [facility] THEY DIDN'T INDICATED A PREFERANCE IN PROVIDERS. SHOULD PT BE MEDICALLY STABLE TO DC OVER WEEKEND FAX ORDERS TO .
[2020-11-17 20:03] VITALS: BP 148/79
[2020-11-17 20:05] VITALS: BP 151/64
--- NOTE | 2020-11-18 02:28 | NUR ---
PATIENT AOX4 MAKES NEEDS KNOWN.PATIENT ON 2 L OF OXYGEN NO SOA OR DISTRESS NOTED THIS SHIFT.PATIENT IS CALM AND COOPERATIVE WITH CARE AND MEDS. PATIENT RATED PAIN OF 4 TO THE SCALE OF 0-10, 10 BEING THE WORST, PATIENT DECLINED PAIN MEDS. FALL PRECAUTION IN PLACE. PATIENT IN BED ASLEEP AT THIS TIME BREATHING REGULAR AND UNLABOURED.
[2020-11-18 08:26] VITALS: BP 142/63
[2020-11-18 08:50] VITALS: BP 144/65
[2020-11-18] MEDS ORDERED: FOLIC ACID1 MG PO (14:23)
[2020-11-18] MEDS ORDERED: METOPROLOL SUCC50 MG PO (14:23)
--- NOTE | 2020-11-18 16:07 | NUR ---
PT IS A&O*4, UP UP BY 1 ASSISTANCE. REFUSE OXYGEN AND VITAL SIGNS ARE STABLE. BATH IS DONE WITH ASSISTANCE. NO PAIN REPORT. WILL KEEP MONITOR PATIENT'S SAFETY UNTIL DISCHARGE.
[2020-11-18 16:11] VITALS: BP 144/65
--- NOTE | 2020-11-19 09:05 | HC ---
[facility] [place] [address] CONSULTATION Name: JESSI TAPIA Room #: 461-P [facility] IN M.R.#: [id number] Admission: 11/16/20 Attend Phys: Venice Paredes MD Discharge: 11/18/20 Date of : 42 Report #: [id number] THIS REPORT FOR: cc: Laya Haider MD, Kelly A. MD Forman, John M. MD ~ DATE OF SERVICE: 11/17/2020 We were asked to see the patient for concerns about left subclavian artery stenosis. HISTORY OF PRESENT ILLNESS: The patient is a 80-year-old admitted on 11/16/2020 after falling at home. The patient states that she was walking in her bedroom, stumbled and fell. The patient describes no loss of consciousness. She remembers the event. The patient did not trip over anything and she was not using her upper extremities in any significant way at the time. The patient states that her blood pressure has been labile at home and often when she stands up, she has some lightheadedness. PAST MEDICAL HISTORY: Significant for coronary artery disease. The patient is also treated for hypertension, hypothyroidism and elevated cholesterol. ALLERGIES: None known. MEDICATIONS: Rosuvastatin, Plavix, amitriptyline, losartan, metoprolol, levothyroxine, cyanocobalamin, calcium, famotidine, aspirin. PAST SURGICAL HISTORY: Previous interventions include angioplasty x 2 1993 and also in 2003. One stent was placed in 1996, one in 2001, 2 different episodes in 2003, 3 in 2006 and a drug-eluting stent in 2007. SOCIAL HISTORY: The patient lives at home. She is an every day smoker. Denies alcohol use. REVIEW OF SYSTEMS: GENERAL: No fever, chills, weight change. EYES: No vision change. HEENT: No headache, hearing problems. PULMONARY: No new shortness of breath, cough or sputum. CARDIAC: Denies chest pain, palpitations. GASTROINTESTINAL: Denies nausea, vomiting, diarrhea, blood. GENITOURINARY: Denies urgency, frequency, blood. MUSCULOSKELETAL: Pain in the left hip, status post fall, but noticed no other bone or joint problems. NEUROLOGIC: Denies other motor or sensory dysfunction. [address] [address] CONSULTATION Name: JESSI TAPIA Room #: 461-P [facility] IN .R.#: [id number] Admission: 11/16/20 Attend Phys: Venice Paredes MD Discharge: 11/18/20 Date of : 42 Report #: [id number] ENDOCRINE: No goiter, no tremor. PHYSICAL EXAMINATION: GENERAL: The patient is lying in bed, appears comfortable. VITAL SIGNS: Temperature 36.7, pulse rate 90, blood pressure in the right arm 161/76 with heart rate 75 and left arm 162/71 with heart rate 75, on recheck it was 156/74 in the left arm. HEENT: No scleral icterus. No arcus. NECK: No mass, no bruit. CHEST: Clear to auscultation. HEART: Rhythm regular, no murmur. I hear no subclavicular bruit. PULSES: Radial pulses are 2+ bilaterally and symmetric. Dorsalis pedis pulses and posterior tibial pulses are 2+. SKIN: No rash or infection. NEUROLOGIC: No motor or sensory dysfunction. MUSCULOSKELETAL: No bone or joint asymmetry or deformity. SKIN: No rash or infection. PSYCHIATRIC: Shows insight into problem, oriented and appropriate. ASSESSMENT AND PLAN: We note that a carotid duplex was done and it is worth commenting on that report. First of all, no blood pressure studies were done. Secondly, the flow in the vertebral arteries is antegrade bilaterally. Thirdly, no significant carotid lesion was seen. A remark was made that there was a high velocity in the left subclavian artery, which is, in my opinion, difficult to interrogate in the usual Doppler study and this was read as suspicious for high-grade carotid stenosis. It seems to me that a blood pressure check should have been requested and to be correlated with these sonographic findings, but I suppose that is what this consult was all about. In any event, I find no assessment, I find no clinical evidence for subclavian stenosis. There is no significant difference in blood pressure in the right arm and the left arm. The patient does not have what appears to be a subclavian steal anatomy with antegrade flow in both vertebral arteries. The patient was also not using her left arm when the fall happened and the episode does not really sound much like syncope, but rather a "hard fall." In any event, I see no intervention mandate at this point, but the attending physician is free to order an imaging study if they have elevated concerns. Thank you for the consult. <ELECTRONICALLY SIGNED> By: Slim Kim MD 11/19/20 0905 1540 0000 Slim Kim MD /nt
== END 2020-11-18 18:15 | disposition home health service (06) | DRG 683 ==
LOC: ER 01:39 → EROBS 05:50 → 4W 20:33
PROVIDERS: Emergency Medicine; Nurse Practitioner; ADMIT Hospitalist; ATTEND Hospitalist
DX: I12.9 Hypertensive chronic kidney disease with stage 1 through stage 4 chronic kidney disease, or unspecified chronic kidney disease (principal); N17.9 Acute kidney failure, unspecified; E86.0 Dehydration; I25.10 Atherosclerotic heart disease of native coronary artery without angina pectoris; E03.9 Hypothyroidism, unspecified; E78.00 Pure hypercholesterolemia, unspecified; M25.552 Pain in left hip; I16.0 Hypertensive urgency; N18.9 Chronic kidney disease, unspecified; D69.6 Thrombocytopenia, unspecified; I70.8 Atherosclerosis of other arteries; E78.5 Hyperlipidemia, unspecified; Z87.01 Personal history of pneumonia (recurrent); Z98.42 Cataract extraction status, left eye; Z95.5 Presence of coronary angioplasty implant and graft; Z98.41 Cataract extraction status, right eye; Z79.01 Long term (current) use of anticoagulants; Z79.82 Long term (current) use of aspirin; Z79.899 Other long term (current) drug therapy
CPT/HCPCS: 10045

== ENCOUNTER 2021-01-16 10:01 | Inpatient (IN) | payer OTHER ==
[~2021-01-16] VITALS: Ht 185.4 cm; Wt 78.1 kg
[~2021-01-16 10:01] MED LIST changes: +AMITRIPTYLINE H10 M1 PO; -AMITRIPTYLINE H25 M2 PO; -CRESTOR5 MG PO; +FOLIC ACID1 MG PO; +METOPROLOL SUCC50 MG PO; +ROSUVASTATIN CA20 MG PO
[2021-01-16 10:02] VITALS: BP 183/69
[2021-01-16 10:20] LABS: ABSOLUTE NEUTROPHILS 4.2 thou/uL (1.4-8.2); BASOPHILS 0.9 % (0.0-2.0); EOSINOPHILS 1.3 % (0.0-3.0); HEMATOCRIT 41.2 % (37.0-47.0); HEMOGLOBIN 13.8 gm/dL (12.0-15.0); LYMPHOCYTES 23.1 % (24.0-44.0); MCH 30.7 pg (26.0-34.0); MCHC 33.4 g/dL (28.0-37.0); MCV 91.9 fL (80.0-100.0); MONOCYTES 7.3 % (1.0-8.0); PLATELET COUNT 226 thou/uL (150-400); POLYS 67.4 % (36.0-66.0); RBC 4.48 mil/uL (4.20-5.00); RDW 17.2 % (10.5-14.5); WBC 6.2 thou/uL (4.0-11.0)
[2021-01-16 10:33] LABS: CALCIUM 9.7 mg/dL (8.5-10.1); CREATININE 1.1 mg/dL (0.6-1.0); POTASSIUM 3.8 mmol/L (3.5-5.1)
[2021-01-16 10:43] LABS: ALBUMIN 3.6 g/dL (3.4-5.0); TOTAL BILIRUBIN 0.6 mg/dL (0.2-1.0); TOTAL PROTEIN 7.6 g/dL (6.4-8.2)
[2021-01-16 13:10] VITALS: BP 132/55
[2021-01-16 13:20] VITALS: BP 115/74
[2021-01-16] MEDS ORDERED: COZAAR 25 MG TA25 M1 PO (13:47)
[2021-01-16] MEDS ORDERED: TOPROL XL25 MG PO (13:48)
[2021-01-16 13:50] VITALS: BP 168/90
--- NOTE | 2021-01-16 13:55 | EKG ---
[address] [place] [address] ELECTROCARDIOGRAM REPORT Name: JESSI TAPIA Room #: 444-P ADM IN M.R.#: [id number] Admission: 01/16/21 Attend Phys: Omid Mitchell MD Discharge: Date of : 42 Report #: [id number] [facility] ED Test Date: 2021-01-16 Test Time: 10:36:46 Pat Name: JESSI TAPIA Department: Room: 444 Gender: F Steersman: VEE : 1940 Requested By: Juan Miguel Armenta Order Number: [id number] MD: Rolan Muro Measurements Intervals [place] Rate: 66 P: 41 [place]: 186 QRS: 20 QRSD: 103 T: 80 QT: 420 QTc: 441 Interpretive Statements Sinus rhythm Probable left atrial enlargement Compared to ECG 11/16/2020 03:37:41 Intraventricular conduction delay no longer present ST (T wave) deviation no longer present Electronically Signed On 01-16-2021 13:55:42 CDT by Rolan Muro [email or web address] <ELECTRONICALLY SIGNED> By: Rolan Muro MD, [facility] 01/16/21 1355 1036 1036 Rolan Muro MD, FAC /EPI
--- NOTE | 2021-01-16 14:48 | NUR ---
ASSUMED PT CARE AT 1340. PT IS ALERT & ORIENTED X4. PT HAS IV SITE ON LFA SALINE LOCKED. PT IS ON TELE MONITOR ON. PT IS ON ROOM AIR. FINISHED ADMISSION TODAY. PT C/O OF PAIN ON L HIP. TEXTED DR VIA VARUNOSTEJEANNETTE AND PAGE AWAITING FOR HOME MEDICATIONS TO RESTART. PT ON THE BED, BED ON THE LOWEST POSITION, SIDE RAILS UP, CALL LIGHT WITHIN REACH. WILL CONTINUE TO MONITOR PT. FOLLOW POC.
--- NOTE | 2021-01-16 16:23 | NUR ---
ASSESSMENT: CM REVIEWED CHART AND MET WITH PATIENT AT THE BEDSIDE. PT WAS ADMITTED DUE TO LEFT HIP FX. ORTHO CONSULT HAS BEEN PLACED. PT REPORTS LIVING IN A HOUSE WITH HER TWO ADULT SONS. PT REPORTS THAT SHE HAS ABOUT 4-5 STEPS TO ENTER THE HOME BUT SHE HAS AN OLD WHEELCHAIR THAT USED TO BE HER HUSBANDS AND HER SONS CAN ROLL HER AROUND THE HOME TO ENTER WITH NO STEPS. PT REPORTS THAT SHE WAS FULLY INDEPENEDENT WITH ADLS AND AMBULATION. PT IS CURRENTLY IN SERVICES WITH [facility]. CM NOTIFIED [facility] IN INTAKE OF PATIENTS ADMISSION AND FAXED REFERRAL. CM WILL CONTINUE TO FOLLOW AND AWAIT FURTHER RECOMMENDATIONS AT THIS TIME.
[2021-01-16 23:48] VITALS: BP 145/65
[2021-01-17] VITALS (9 sets, daily range): BP systolic 109–181; BP diastolic 59–89
[2021-01-17 05:56] LABS: CALCIUM 8.7 mg/dL (8.5-10.1); CREATININE 1.2 mg/dL (0.6-1.0); POTASSIUM 4.3 mmol/L (3.5-5.1)
--- NOTE | 2021-01-17 06:00 | NUR ---
PT ALERT AND ORIENTED WITH FORGETFULNESS. SHE IS INCONTINENT.EXTERNAL CATH USED. AFEBRILE.DENIES NAUSEA AND VOMITING. PT HAD A CHLORHEXIDINE WASH THIS AM.NPO AFTER MIDNOC. SCHEDULED SURGERY TODAY.
--- NOTE | 2021-01-17 08:20 | NUR ---
PAGED DR. WHITESIDE AND TALKED W/ OFFICE NURSE, RALPH, WHO TEXTED TO CHECK W/ HIM RE PT HAVING SURGERY TODAY SHE HAS ONLY MISSED ONE DOSE OF PLAVIX. SHE CALLED TO SAY HE TEXTED BACK THAT PT NEEDED TO HAVE HER SURGERY TODAY.
--- NOTE | 2021-01-17 09:00 | NUR ---
Cm notified by bedside nurse that she is going to have anticipated left hip surgery today.
--- NOTE | 2021-01-17 10:03 | NUR ---
HEALTH PRACTICE MANAGER called for pt this morning for chest pain. See flowsheet for details.
--- NOTE | 2021-01-17 17:10 | NUR ---
PT ASSESSED AT START OF SHIFT. PT NPO FOR HIP SURGERY LATER THIS AFTERNOON. AT 0945 PT C/O MIDSTERNAL CHEST PAIN. RAPID RESPONSE CALLED AMD VS, EKG, TROPONIN DONE AND NEGATIVE FOR CARDIAC. DID HAVE SOME NAUSEA AND EMESIS LATER AM AND ZOFRAN RELIEVED IT. PT TO OR AT 1615 PER BED.
--- NOTE | 2021-01-18 03:24 | NUR ---
PT IS POST OP LEFT HIP. FOSTER DRSG IN PLACE. SCDS AND ABDUCTOR PILLOW IN PLACE. AFEBRILE. ON FOR POST OP COMFORT. C/O DYSPEPSIA ON AND OFF, HOB ELEVATED A LITTLE FOR BETTER COMFORT. REMAINS ALERT AND ORIENTED WITH SOME SLIGHT FORGETFULNESS.
[2021-01-18 04:33] VITALS: BP 158/74
[2021-01-18 04:56] LABS: CALCIUM 8.7 mg/dL (8.5-10.1); MAGNESIUM 1.9 mg/dL (1.8-2.4); POTASSIUM 4.2 mmol/L (3.5-5.1)
[2021-01-18 04:58] LABS: HEMATOCRIT 36.2 % (37.0-47.0); HEMOGLOBIN 12.3 gm/dL (12.0-15.0); MCH 31.3 pg (26.0-34.0); MCV 92.2 fL (80.0-100.0); RBC 3.93 mil/uL (4.20-5.00); RDW 16.7 % (10.5-14.5); WBC 9.7 thou/uL (4.0-11.0)
[2021-01-18 07:17] VITALS: BP 154/118
--- NOTE | 2021-01-18 08:00 | EKG ---
[address] [place] [address] ELECTROCARDIOGRAM REPORT Name: JESSI TAPIA Room #: 444- ADM IN M.R.#: [id number] Admission: 01/16/21 Attend Phys: Omid Mitchell MD Discharge: Date of : 42 Report #: [id number] [facility] Test Date: 2021-01-17 Test Time: 09:52:29 Pat Name: JESSI TAPIA Department: Room: 444 Gender: F Launchman: YOLANDA : 1940 Requested By: Omid Mitchell Order Number: [id number] MD: Xu Alston Measurements Intervals [place] Rate: 80 P: 42 GA: 169 QRS: 23 QRSD: 118 T: 57 QT: 383 QTc: 442 Interpretive Statements Sinus rhythm Left ventricular hypertrophy Baseline wander in lead(s) V5,V6 Compared to ECG 01/16/2021 10:36:46 No significant change was found Electronically Signed On 01-18-2021 7:59:59 CDT by Xu Alston [email or web address] <ELECTRONICALLY SIGNED> By: Xu Alston MD, [facility] 01/18/21 0759 0952 0952 Xu Alston MD, [facility] /EPI
[2021-01-18 08:11] VITALS: BP 154/118
--- NOTE | 2021-01-18 09:09 | NUR ---
ASSUMED PT CARE THIS AM. PT IS ALERT & ORIENTED X4. PT HAS IV SITE ON LFA RUNNING NS@75ML/HR. PT IS ON TELE MONITOR ON. PT HAD SURGERY YESTERDAY. PT HAS FOSTER DRESSING AND ADBUCTOR PILLOW. PATIENT WILL BE WORKING WITH PHYSICAL AND OCCUPATIONAL THERAPY TODAY. PT C/O OF PAIN AND GIVEN PAIN MEDICATION PER PT REQUEST. PT TOLERATED DIET AND MEDICATION WELL. WILL CONTINUE TO MONITOR PT. FOLLOW POC.
--- NOTE | 2021-01-18 11:59 | NUR ---
SW reviewed chart and spoke with attending physician. Pt is POD#1 left LAWSON. PT/OT evals ordered today. Awaiting therapy evals to determine recommendations for discharge needs. [facility]U is following to assist as needed with discharge planning.
[2021-01-18 15:54] VITALS: BP 117/48
[2021-01-18 20:06] VITALS: BP 152/55
[2021-01-19 04:00] VITALS: BP 143/56
--- NOTE | 2021-01-19 04:00 | NUR ---
SLEPT THRO NOC, ABDUCTOR PILLOW AND SCDS IN PLACE. FOSTER DRSG T LEFT HIP, C/D/I. PT HAS GOOD CSM TO LEFT FOOT. AFEBRILE.
[2021-01-19 08:27] VITALS: BP 148/67
[2021-01-19 12:04] VITALS: BP 141/60
--- NOTE | 2021-01-19 12:32 | NUR ---
SW reviewed chart and spoke with nursing and attending physician. Pt is progressing towards goals for discharge. Recommendation made for pt to go to post-acute care. SW met with pt at bedside. Provided pt with in-network SNF list for review. Pt states she will review with her family and notify SW with her preference of facility. Referral to be sent at that time. SW is following to assist as needed with discharge planning.
[2021-01-19 15:58] VITALS: BP 123/56
--- NOTE | 2021-01-19 17:44 | NUR ---
assumed care of pt at 0700. pt alert and oriented to self and situation. up to chair with physical therapy. abductor in place while in bed. pain controlled with med regimen. incontinent of urine. calls out appropriately. fluids infusing per order.
[2021-01-19 20:40] VITALS: BP 138/55
[2021-01-20 01:50] VITALS: BP 151/67
--- NOTE | 2021-01-20 04:58 | NUR ---
PT REPORTED LEFT HIP PAIN WITH DISCMFORT ON THE BOTTOM AND LEFT HEEL, TREATMENT COMPLETED, TOLARATED WELL, VOICED RELIEF SLEPT WELL, PAIN MEDICATION ADMINISTERED PER PT REQUEST, IV FLUID IN PROGRESS WILL CONTINUE TO MONITOR PT.
[2021-01-20 07:39] VITALS: BP 147/74
[2021-01-20 11:33] VITALS: BP 130/63
--- NOTE | 2021-01-20 12:58 | NUR ---
Assumed pt care at 7am.Assessment completed.vss.Pt in bed for all meals. Good appetite noted. Therapist assist pt with transfer and shifting form bed to chair.Fair endurance noted.Fall bundle in place.No verbal c/o. Will continue to monitor.
[2021-01-20 15:57] VITALS: BP 173/68
[2021-01-20 20:41] VITALS: BP 151/68
--- NOTE | 2021-01-21 07:43 | NUR ---
PT LYING IN BED. MORPHINE PROVIDING PAIN RELIEF. PURE WICK IN PLACE. RESTING COMFORTABLY. NO NEEDS VOICED. CALL LIGHT WITHIN REACH. FREQUENT OBSERVATION.
[2021-01-21 08:35] VITALS: BP 199/91
[2021-01-21 10:52] VITALS: BP 189/74
[2021-01-21 11:05] VITALS: BP 174/82
[2021-01-21 12:15] VITALS: BP 166/73
--- NOTE | 2021-01-21 13:09 | NUR ---
ASSUMED PT CARE THIS AM. PT IS ALERT AND AWAKE. PT HAS IV SITE ON LFA SALINE LOCKED. PT IS ON TELE MONITOR ON. PT HAS PUREWICK EXTERNAL CATH IN PLACE. PT IS ON ROOM AIR. PT C/O OF PAIN AND GIVEN PAIN MEDICATION PER PT REQUEST. NOTED HIGH BP THIS AM. INFORMED AND GIVEN ONE TIME METOPROLOL ORDER THIS AM. PT IS ON 2L O2 NC FOR COMFORT. PT ON THE BED, BED ON THE LOWEST POSITION, SIDE RAILS UP, CALL LIGHT WITHIN REACH. WILL CONTINUE TO MONITOR PT. FOLLOW POC.
[2021-01-21 15:39] VITALS: BP 157/61
[2021-01-21 19:30] VITALS: BP 163/70
[2021-01-22 04:41] VITALS: BP 167/75
--- NOTE | 2021-01-22 05:49 | NUR ---
PT LYING IN BED. LORTAB PROVIDING PAIN RELIEF. RESTING COMFORTABLY. NO NEEDS VOICED. CALL LIGHT WITHIN REACH. FREQUENT OBSERVATION.
[2021-01-22 07:29] VITALS: BP 180/80
--- NOTE | 2021-01-22 11:06 | NUR ---
ON-GOING ASSESSMENT: UJANA REVIEWED CHART AND MET WITH PATIENT AND HER SON AT THE BEDSIDE TO DISCUSS SNF OPTIONS. SON REPORTS THEY PREFER SOMEWHERE CLOSE TO HOME AND WANT SOMEWHERE IN [facility] AFTER REVIEWING SNF LIST THEY REQUESTED A REFERRAL BE SENT TO [facility]. CM FAXED REFERRAL AND LEFT A VM WITH ADMISSIONS AND AWAITING FEEDBACK AT THIS TIME. IF [facility] HAS A BED CM REQUESTED THAT THEY START INSURANCE AUTH. JUANA WILL CONTINUE TO FOLLOW.
--- NOTE | 2021-01-22 11:55 | NUR ---
ASSUMED CARE OF PT AT 0700 THIS MORNING. PT HAD HIP REPAIR FOR LT HIP FX ON 01/18. PT IS A/OX3 WITH CONFUSION. CONGESTED COUGH WITH NO PRODUCTION. LT HEAL IS BOGGY WITH WOUND COVERED WITH OPTI-FOAM. TELE SHOWING SR TO ST. ASSESSMENTS NOTED IN CHART AND OTHERWISE UNREMARKABLE. FALL PRECAUTIONS ARE IN PLACE. CALL LIGHT AND OTHER NEEDS ARE IN REACH. MEDS AND TX GIVEN NEEDED AND SCHEDULED. WAITING FOR ACUTE REHAB PLACEMENT. WILL MONITOR AND NOTE ANY CHANGES.
[2021-01-22 15:41] VITALS: BP 187/87
[2021-01-22 16:20] LABS: HEMATOCRIT 30.9 % (37.0-47.0); HEMOGLOBIN 10.2 gm/dL (12.0-15.0); MCH 30.5 pg (26.0-34.0); MCHC 33.1 g/dL (28.0-37.0); MCV 92.2 fL (80.0-100.0); RBC 3.36 mil/uL (4.20-5.00); RDW 16.7 % (10.5-14.5); WBC 9.4 thou/uL (4.0-11.0)
[2021-01-22 16:28] LABS: CALCIUM 9.1 mg/dL (8.5-10.1); POTASSIUM 3.3 mmol/L (3.5-5.1)
[2021-01-23 02:20] VITALS: BP 184/99
--- NOTE | 2021-01-23 04:32 | NUR ---
RECEIVED CARE OF THIS PATIENT AT 1900. PATIENT ALERT AND ORIENTED X PERSON, PLACE AND SITUATION, CONFUSED WITH TIME. DRESSING ON L HIP INTACT. HAS OPEN WOUND ON R BUTTOCKS. REFUSES TEDS AND SCD'S. DENIES PAIN IN WOUND BUT C/O STOMACH ACHE. SLEPT OFF AND ON DURING NIGHT.
[2021-01-23 08:00] VITALS: BP 192/97
--- NOTE | 2021-01-23 11:16 | NUR ---
ASSUMED CARE OF PT AT 0700 THIS MORNING. NO CHANGES SINCE REPORT WAS GIVEN LAST NIGHT. PT ILL NOT EAT MEALS AND URINE IS VERY DARK. ASSESSMENTS NOTED IN THE CHART AND OTHERWISE UNREMARKABLE. FALL PRECAUTIONS ARE IN PLACE. CALL LIGHT AND OTHER NEEDS ARE IN REACH. PT IS NOT RESPONSIVE TO WORK WITH PHYS THPY AND OT. MEDS AND TX GIVEN NEEDED AND SCHEDULED. WILL MONITOR AND NOTE ANY CHANGES.
--- NOTE | 2021-01-23 15:59 | NUR ---
on-going assessment: CM REVIEWED CHART AND SPOKE WITH ATTENDING. PT IS NEARING DISCHARGE GOALS. CM REACHED OUT TO [facility] MULTIPLE TIMES THROUGHOUT THE DAY. CM RECEIVED A PHONE CALL BACK AND SHE REQUESTED THAT REFERRAL BE SENT TO E-FAX [phone] AND SHE WILL REVIEW RO. CM FAXED REFERRAL. CM ALSO SPOKE WITH PATIENT AND SON TO UPDATE. CM ALSO REQUESTED THAT THEY HAVE A BACKUP SNF IF [facility] CANNOT ACCEPT AND THEY WILL REVIEW LIST. CM WILL CONTINUE TO FOLLOW TO ASSIST NEEDED.
[2021-01-23 19:11] VITALS: BP 191/96
[2021-01-23 20:47] VITALS: BP 170/84
--- NOTE | 2021-01-24 01:42 | NUR ---
ASSUMED CARE OF PT AT SHIFT CHANGE. PT IS AOX3 AND LETS NEEDS BE KNOWN AT TIME. PT REPORTED SOME PAIN. 2L O2 VIA NC CONTINUED. PT DENIED NAUSEA. ASSESSMENT CHARTED SURGICAL DRESSSNING IS C/D/I. PT WAS INCT THIS SHIFT. PT WAS ABLE TO GET COMFORTABLE AND SLEEP PART OF THE SHIFT. VSS AND NO S/S OF ACUTE DISTRESS. WILL CONTINUE TO MONITOR FOR CHANGES.
[2021-01-24 04:40] VITALS: BP 138/90
[2021-01-24 08:10] VITALS: BP 193/93
--- NOTE | 2021-01-24 10:32 | NUR ---
Assumed care of pt at 0700. Pt alert but forgetfula at times. Dressing c/d/i. Blood pressure elevated. Pt c/o mild chest pain after working with physical therapy. Provider notified. New orders noted. Call light within reach. Fall precautions in place. Will continue to monitor.
[2021-01-24 10:34] VITALS: BP 182/78
[2021-01-24 12:56] VITALS: BP 143/72
[2021-01-24 15:44] VITALS: BP 153/68
--- NOTE | 2021-01-24 16:22 | NUR ---
ON-GOING ASSESSMENT: JUANA REVIEWED CHART AND SPOKE WITH ATTENDING. PT IS NEARING DISCHARGE GOALS. JUANA SPOKE WITH LIASON FROM [facility] WHO REPORTS THEY CAN ACCEPT HER ONCE MEDICALLY STABLE. CM NOTIFIED ATTENDING. JUANA SPOKE WITH PATIENTS SON TO NOTIFY HIM AND HE IS AGREEABLE WITH PLAN. JUANA WILL FOLLOW UP WITH LIASON IN THE AM FROM [facility].
[2021-01-24 19:29] VITALS: BP 138/52
--- NOTE | 2021-01-25 03:26 | NUR ---
ASSUMED PT CARE AT 1900.PT DENIED PAIN SO FAR.FOSTER DRSG TO HER L HIP WITH DRIED BLOOD.PT STILL ON 2L/NC.WBAT.PT REPOSITIONED WHILE IN BED.EXT FEMALE CATH IN PLACE.CALL LIGHT WITHIN REACH.
[2021-01-25 04:47] VITALS: BP 161/64
[2021-01-25 07:46] VITALS: BP 169/58
--- NOTE | 2021-01-25 09:03 | NUR ---
WOUND CONSULT; THE LEFT HEEL SHOWS S/S CONSITANT WITH PRIOR PRESSURE INJURY. THE AREA IS BOGGY. THE BUTTOCKS HAS AREAS CONSISTANT WITH FRICTION/SKIN TEAR. FRAYED EDDGES ARE CLEAARLY VISIBLE. NO S/S OF INFECTION SEEN. THE BUTTOCK WILL LIKLEY COVERT TO PRESSURE INJURY BECAUSE THE SKIN INTEGRITY IS COMPRIMISED. RECCOMMENDATIONS; -Q2H TURNING WITH HOB LESS THAN 30 DEGREES EXCEPT MEALS. -Q2H TURNING AT A MINIMUM. -LOW AIR LOSS PUMP ON AT ALL TIMES. -PRAFO BOOTS BILATERALLY. -ZGUARD TO BUTTOCKS BID. DISCUSSED WITH RN.
[2021-01-25 10:00] VITALS: BP 169/58
--- NOTE | 2021-01-25 12:28 | NUR ---
DISCHARGE NOTE: MEENU reviewed chart and spoke with nursing and attending physician. Pt is medically stable for discharge to SNF today. MEENU spoke with [facility] post-acute liaison, who confirms they are able to accept pt today and they have insurance authorization. Wheelchair van transportation scheduled fro 1600 per facility's arrangements. MEENU met with pt at bedside to provide update. Pt is aware and in agreement with discharge plan. Pt requested SW conact her son, Gurinder, to let him know. MEENU spoke with Gurinder, and notified of discharge plan. Address and phone number for [facility] provided. Gurinder is agreeable with plan. Chart copy requested. Nursing provided with number to call report. Awaiting discharge ppwk at this time. MEENU is following to finalize discharge.
[2021-01-25 12:57] LABS: CREATININE 1.3 mg/dL (0.6-1.0)
[2021-01-25 13:06] LABS: POTASSIUM 2.1 mmol/L (3.5-5.1)
[2021-01-25 13:08] LABS: HEMATOCRIT 30.2 % (37.0-47.0); HEMOGLOBIN 9.8 gm/dL (12.0-15.0); MCH 29.6 pg (26.0-34.0); MCHC 32.5 g/dL (28.0-37.0); RBC 3.32 mil/uL (4.20-5.00); RDW 16.7 % (10.5-14.5); WBC 10.4 thou/uL (4.0-11.0)
[2021-01-25] MEDS ORDERED: LASIX 40 MG TAB40 M1 PO (13:26)
[2021-01-25] MEDS ORDERED: MUCINEX600 MG PO (13:26)
[2021-01-25] MEDS ORDERED: ENOXAPARIN40 MG/0.1 SUBQ (13:26)
[2021-01-25] MEDS ORDERED: METOPROLOL SUCC50 MG PO (13:26)
[2021-01-25] MEDS ORDERED: ACETAMINOPHEN325 M1 PO (13:26)
[2021-01-25] MEDS ORDERED: ACCUNEB SO1.25 MG/1 INH (13:26)
[2021-01-25] MEDS ORDERED: HYDROCODON-ACE1 EAC7 PO (13:26)
[2021-01-25] MEDS ORDERED: AZITHROMYCIN 2250 MG PO (13:26)
[2021-01-25] MEDS ORDERED: CARDIZEM CD 18180 M3 PO (13:26)
[2021-01-25] MEDS ORDERED: K-DUR 20 MEQ T20 MEQ PO (13:29)
--- NOTE | 2021-01-25 16:55 | NUR ---
PT ASSESSED AT START OF SHIFT. UP W/ THERAPY USING WALKER AND SAT IN THE CHAIR FOR SEVERAL HOURS. POOR APPETITE AND NEEDS MUCH ENCLOURAGEMENT. PT STARTED ON ORAL POTASSIUM FOR 2.1. WILL CONTINUE AT FACILITY. TRANSPORT COMING AT 1730 TO TAKE PT TO [facility].
== END 2021-01-25 17:44 | DRG 521 ==
LOC: ER 10:01 → EROBS 12:54 → 4S 12:54
PROVIDERS: Emergency Medicine; ADMIT Internal Medicine; ATTEND Internal Medicine
PROC: 0SRS01Z Replacement of Left Hip Joint, Femoral Surface with Metal Synthetic Substitute, Open Approach (ICD-10-PCS; principal; 2021-01-17)
DX: S72.012A Unspecified intracapsular fracture of left femur, initial encounter for closed fracture (principal); J96.01 Acute respiratory failure with hypoxia; J18.9 Pneumonia, unspecified organism; I25.10 Atherosclerotic heart disease of native coronary artery without angina pectoris; I73.9 Peripheral vascular disease, unspecified; I10 Essential (primary) hypertension; E03.9 Hypothyroidism, unspecified; Z20.822 Contact with and (suspected) exposure to COVID-19; E78.5 Hyperlipidemia, unspecified; E78.00 Pure hypercholesterolemia, unspecified; F17.210 Nicotine dependence, cigarettes, uncomplicated; R53.81 Other malaise; W18.39XA Other fall on same level, initial encounter; Z95.5 Presence of coronary angioplasty implant and graft; Z98.42 Cataract extraction status, left eye; Z98.41 Cataract extraction status, right eye; Z95.820 Peripheral vascular angioplasty status with implants and grafts; Z71.6 Tobacco abuse counseling; Z28.21 Immunization not carried out because of patient refusal; Y93.89 Activity, other specified; Y92.89 Other specified places as the place of occurrence of the external cause; Y99.8 Other external cause status
CPT/HCPCS: 10100; 50010; 50101; 50414; 51412; 53000; 56524; 56527; 56528; 56530; 57103; 58605; 62110; 62900; 70005